=== PATIENT | female | born 1980 | race Caucasian/White ===

== ENCOUNTER 2025-10-24 17:52 | Emergency (ER) | payer OTHER, SELFPAY ==
[2025-10-24 17:59] VITALS: BP 188/131
[2025-10-24 18:19] LABS: Hematocrit 43.8 % (37.0-47.0); Hemoglobin 15.7 g/dL (12.0-16.0); Mean Corp Hgb Conc. 35.8 g/dL (33.0-37.0); Mean Corpuscular Volume 89.9 fL (81.0-99.0); Nucleated Red Blood Cells % 0 %; Platelet Count 307 10^3/uL (130-400); Red Cell Dist. Width 12.0 % (11.5-14.5)
[2025-10-24 18:40] LABS: ALT (SGPT) 56 U/L (0-35); AST (SGOT) 62 U/L (14-36); Albumin 5.1 g/dl (3.5-5.0); Alkaline Phosphatase 94 U/L (38-126); Blood Urea Nitrogen 20 mg/dl (7-17); Calcium 10.1 mg/dl (8.4-10.2); Carbon Dioxide 20 mmol/L (22-30); Chloride 100 mmol/L (98-107); Glucose 102 mg/dl (70-99); Potassium 3.6 mmol/L (3.5-5.1); Sodium 131 mmol/L (135-145); Total Protein 8.5 g/dl (6.3-8.2); eGFR > 60.00
[2025-10-24 19:53] LABS: HCG, Serum Qualitative Screen Negative
== END 2025-10-24 20:01 ==
LOC: EMR 17:52
PROVIDERS: Emergency Medicine
DX: I10 Essential (primary) hypertension (principal)
CPT/HCPCS: 80053; 84703; 85025; 93005